=== PATIENT | female | born 1970 | race Caucasian/White ===

== ENCOUNTER → 2017-06-30 | Outpatient (CLI) | payer OTHER ==
--- NOTE | 2017-06-30 12:21 | US ---
EXAMINATION TYPE: US thyroid st tissue head/neck DATE OF EXAM: 06/30/2017 COMPARISON: NONE CLINICAL HISTORY: E04.1 Thyroid Nodule. Pt states known thyroid nodule, however last scan was 15+ yea rs ago GLAND SIZE: Right Lobe: 4.9 x 1.8 x 1.5 cm Overall Parenchyma: heterogenous Left Lobe: 4.3 x 1.6 x 1.3 cm Overall Parenchyma: heterogeneous Isthmus Thickness: 0.4 cm NODULES RIGHT: # of nodules measured on right: 3 1. 1.0 X 0.8 x 0.8 cm isoechoic solid nodule at the mid pole with well-defined margins; This nodul e is wider than tall and shows intranodular vascularity. Prior size: No prior 2. 1.1 X 0.8 x 1.1 cm isoechoic solid nodule at the lower pole with well-defined margins; This nodu le is wider than tall and shows intranodular vascularity. Prior size: No prior 3. 0.4 X 0.4 x 0.4 cm isoechoic solid nodule at the lower pole with well-defined margins; This nodu le is wider than tall and shows intranodular vascularity. Prior size: No prior LEFT: # of nodules measured on left: 1 1. 0.7 X 0.7 x 0.9 cm echogenic solid nodule at the lower pole with well-defined margins;This nodul e is wider than tall and shows intranodular vascularity. Prior size: No prior Bilateral neck scanned, no evidence of lymphadenopathy. Nodules bilaterally IMPRESSION: Mildly enlarged thyroid gland containing multiple bilateral thyroid nodules with the largest measurin g 1.1 cm at the lower pole of the right thyroid lobe. Surveillance is recommended for these thyroid n odules.
== END | disposition home or self-care (01) ==
LOC: RADUSWWP 10:16
PROVIDERS: ATTEND Family Medicine
DX: E04.2 Nontoxic multinodular goiter (principal)
CPT/HCPCS: 76536

== ENCOUNTER 2023-08-04 11:14 | Day surgery (SDC) | payer OTHER ==
[~2023-08-04 11:14] MED LIST: HYDROmorphone 0.5 MG/0.5 ML SYRINGE IVP PRN; LIDOCAINE 1% (10MG/ML) FOR IV START INTRADERMA PRN; Pre Op ABX Message 1 EACH MISC MISCELLANE ONE
[2023-08-04] MEDS: LACTATED RINGERS 1,000 ML IV SCH (11:46)
[2023-08-04] MEDS: ONDANSETRON 4 MG/2 ML VIAL IVP ONE (11:50)
[2023-08-04 12:02] VITALS: RESP 16; TEMP 97.9
[2023-08-04] MEDS: BUPIVACAINE (PF) 0.5% 30 ML VIAL SQ ONE ×2 (12:36→13:00)
[2023-08-04] MEDS: LIDOCAINE 1% INJ 10MG/ML (20 ML MDV) SQ ONE (12:37)
[2023-08-04] MEDS ORDERED: MIDAZOLAM 2 MG/2 ML VIAL ONE (12:50)
[2023-08-04] MEDS ORDERED: fentaNYL (PF) 50 MCG/ML 2 ML AMP ONE (12:50)
[2023-08-04] MEDS ORDERED: PROPOFOL 10 MG/ML 20 ML VIAL IV ONE (12:50)
[2023-08-04] MEDS ORDERED: LIDOCAINE 1% INJ 10MG/ML (20 ML MDV) ONE (12:50)
[2023-08-04] MEDS: LIDOCAINE 1%-EPI 1:100,000 50 ML VIAL SQ ONE (13:00)
[2023-08-04 14:14] VITALS: BP 11/77; PULSE 59
--- NOTE | 2023-08-04 19:00 | P.OP ---
Date of Procedure: 08/04/23 Preoperative Diagnosis: Right ring trigger finger Postoperative Diagnosis: same Procedure(s) Performed: Right ring finger trigger finger release Anesthesia: MAC, local Surgeon: Kiya Bolanos Estimated Blood Loss (ml): 0 Pathology: none sent Condition: stable Disposition: PACU Indications for Procedure: Patient has had long standing stiffness of the right ring finger with locking and catching. She would like to proceed with surgical release. Description of Procedure: The patient, operative extremity, and procedure were identified in the preoperative holding area. After informed consent was obtained, the patient was then brought back to the operating room where a local block was performed with lidocaine with epinephrine and 0.5% marcaine. The extremity was then prepped and draped in normal sterile fashion with a tourniquet on the patients brachium. A formal timeout was performed and the tourniquet was inflated to 250mmHg. A longitudinal incision was made in the distal palmar crease overlying the A1 urmila. Dissection was carried down to the urmila with care taken to protect the neurovascular bundles. The A1 urmila was identified and split longitudinally. The digit was then taken through a full range of motion and there was no longer any palpable catching or clicking. Tendons were inspected and found to be intact. The patient was aroused and asked to flex and extend the finger. There was no further catching. Tourniquet was then let down, hemostasis was achieved and the wound was closed with nylon. Wound was dressed with adaptic, gauze, rex, and an marco a wrap. Patient was brought back to PACU in stable condition.
== END 2023-08-04 14:04 | disposition home or self-care (01) ==
LOC: OR 11:14
PROVIDERS: ATTEND Orthopaedic Surgery Hand Surgery
DX: M65.341 Trigger finger, right ring finger (principal); F90.9 Attention-deficit hyperactivity disorder, unspecified type; F12.90 Cannabis use, unspecified, uncomplicated; Z79.899 Other long term (current) drug therapy
CPT/HCPCS: 81025; 26055; J2250; J2405; J2001; J3010; J2704; J0665

== ENCOUNTER → 2024-03-01 | Outpatient (CLI) | payer OTHER ==
--- NOTE | 2024-03-01 13:34 | US ---
EXAMINATION TYPE: US thyroid st tissue head/neck DATE OF EXAM: 03/01/2024 COMPARISON: US 06/30/2017 CLINICAL INDICATION: Female, 53 years old with history of E04.2 NONTOXIC MULTINODULAR GOITER; F/U, Go iter TECHNIQUE: Grayscale and color Doppler imaging of the thyroid gland. FINDINGS: GLAND SIZE: Right Lobe: 4.7 x 1.9 x 1.5 cm Overall Parenchyma: heterogeneous Left Lobe: 4.7 x 1.5 x 1.3 cm Overall Parenchyma: heterogeneous Isthmus Thickness: 0.3 cm NODULES RIGHT: # of nodules measured on right: 3 1. 0.7 X 0.8 x 0.9 cm, mid , Prior size: 1.0 x 0.8 x 0.8 cm TIRADS Score: 3 TIRADS Category 3: Composition: Solid or almost completely solid (2 points). Echogenicity: Hyperechoic or isoechoic (1 point). Shape: Wider than tall (0 points). Margin: Smooth (0 points). Echogenic foci: None or large comet-tail artifacts (0 points) Recommendation: If >2.5cm: FNA; If >1.5cm: Follow up at 1,3,5 years 2. 1.1 X 0.7 x 1.1 cm, lower, Prior size: 1.1 x 0.8 x 1.1 cm TIRADS Score: 3 TIRADS Category 3: Composition: Solid or almost completely solid (2 points). Echogenicity: Hyperechoic or isoechoic (1 point). Shape: Wider than tall (0 points). Margin: Smooth (0 points). Echogenic foci: None or large comet-tail artifacts (0 points) Recommendation: If >2.5cm: FNA; If >1.5cm: Follow up at 1,3,5 years 3. 0.7 X 0.5 x 0.7 cm, lower, Prior size: 0.4 x 0.4 x 0.4 cm TIRADS Score: 3 TIRADS Category 3: Composition: Solid or almost completely solid (2 points). Echogenicity: Hyperechoic or isoechoic (1 point). Shape: Wider than tall (0 points). Margin: Smooth (0 points). Echogenic foci: None or large comet-tail artifacts (0 points) Recommendation: If >2.5cm: FNA; If >1.5cm: Follow up at 1,3,5 years LEFT: # of nodules measured on left: 1 1. 0.6 X 0.5 x 0.7 cm, lower, Prior size: 0.7 x 0.7 x 0.9 cm TIRADS Score: 4 TIRADS Category 4: Composition: Indeterminate due to calcification (2 points). Echogenicity: Cannot be determined (1 point). Shape: Wider than tall (0 points). Margin: Smooth (0 points). Echogenic foci: Macrocalcifications (1 point) Recommendation: If >1.5cm: FNA; If >1cm: Follow up at 1,2, 3,5 years ISTHMUS: # of nodules measured in the isthmus: 0 Bilateral neck scanned, no evidence of lymphadenopathy. Stable nodules when compared to prior. IMPRESSION: Bilateral thyroid nodules. No significant change from prior. Findings the criteria for follow-up if c linically warranted. [facility], , 03/01/2024 1:32 PM
== END | disposition home or self-care (01) ==
LOC: RADUSWWP 12:54
PROVIDERS: ATTEND Family Medicine
DX: E04.2 Nontoxic multinodular goiter (principal)
CPT/HCPCS: 76536